=== PATIENT | male | born 1965 | race Caucasian/White ===

== ENCOUNTER 2021-06-13 22:24 | Emergency (ER) | payer BC, OTHER ==
[2021-06-13 22:51] VITALS: BP 145/87; PULSE 78; TEMP 99.1; BMI 33.5
== END 2021-06-13 23:31 | disposition home or self-care (01) ==
LOC: FER 22:24
DX: M79.671 Pain in right foot (principal); M79.672 Pain in left foot; R20.2 Paresthesia of skin
CPT/HCPCS: 99283-25